=== PATIENT | female | born 1940 | race Caucasian/White ===

== ENCOUNTER 2016-09-18 10:12 | Inpatient (IN) | payer MEDICARE, BC ==
--- NOTE | ~2016-09-18 | DS ---
Discharge Summary [id number] [facility] [place]. [address] NAME: CASE,RUCHI PAGAN : 40 STATUS : DIS IN PAT#: [id number] AGE: 76 ADM/REG DATE : 09/19/16 MR#: [id number] REPORT SERV DATE: 09/20/16 DICTATED BY: JR. GOLDEN WILLIAM JOHN DATE: 09/20/16 REPORT STATUS : Draft TRANSCRIBED BY: MODLisa DATE: 09/20/16 ADMISSION DATE: 09/19/2016 DISCHARGE DATE: 09/20/2016 DISCHARGE DIAGNOSES: 1. Acute bronchitis. 2. Chronic obstructive pulmonary disease exacerbation. 3. Acute hypoxic respiratory failure. 4. Influenza B. 5. History of hypertension. 6. Hyperlipidemia. 7. Tobacco use. 8. Leukopenia, which has resolved. 9. Obstructive sleep apnea on home CPAP. OPERATIONS, PROCEDURES, AND TREATMENTS: Chest x-ray done 09/18/2016, which showed no acute cardiopulmonary abnormality. CT of the chest done 09/18/2016, which showed near symmetric bilateral bronchial wall thickening and peripheral subpleural tree in bud like nodularity involving both upper and lower lobes suggesting widespread mild inflammatory process, bronchitis, and small airway disease. There is 3 vessel coronary artery disease and/or stenting. There is mildly enlarged precarinal level 4R lymph node which was likely reactive. There are bilateral left greater than right pleural plaques with minimal calcification likely due to prior asbestos exposure. Blood cultures x2 done 09/18/2016 were sterile. DISCHARGE MEDICATIONS: Include: 1. Estradiol 0.075 mg topically every 72 hours. 2. Lisinopril 2.5 mg orally daily. 3. Zyrtec 10 mg orally daily. 4. Tamiflu 75 mg orally twice a day through 09/21/2016. 5. Pravachol 10 mg orally daily. 6. Metamucil 1 dose at bedtime. 7. Prednisone 40 mg orally daily for three days, then 20 for three days, then 10 for three days, then none. 8. Pulmicort Respules 0.5 mg inhaled twice a day. 9. Nasonex 2 sprays in both nostrils twice a day as needed. 10.DuoNeb 0.5/3 mg inhaled every four hours. 11.Vitamin. 12.Fish oil over the counter. 13.Ultram 50 mg twice a day as needed. 14.Levaquin 750 mg orally daily for three days. HOSPITAL COURSE: The patient was a very pleasant 76-year-old female, who presented to the Discharge Summary [address] [address] NAME: CASE,RUCHI PAGAN : 40 STATUS : DIS IN PAT#: [id number] AGE: 76 ADM/REG DATE : 09/19/16 MR#: [id number] REPORT SERV DATE: 09/20/16 DICTATED BY: JR. GOLDEN WILLIAM JOHN DATE: 09/20/16 REPORT STATUS : Draft TRANSCRIBED BY: TAL DATE: 09/20/16 emergency room on 09/18/2016 with cough, congestion, and shortness of breath. She says she got sick about 09/14/2016 with sore throat, cough, headache, chills, and sweats, but did not take her temperature. She had no nausea, vomiting, or diarrhea. She had some sputum production. She tried to treat the symptoms at home but then continued to feel poorly and presented to an urgent care at [place] where she was diagnosed with influenza B until she had a right-sided chest pneumonia infiltrate, was placed on Levaquin, she received a steroid injection and actually went home, she continued to have symptoms and came to the emergency room for further help. In the emergency department, the patient's was desaturating at 85% while walking on room air. She was afebrile and otherwise exam was unremarkable except diffuse expiratory wheezes with a few diminished airflow in all lung malone. The patient is admitted to the Clinical Decision Unit where she was started on IV steroids, inhaled bronchodilators, anticholinergics long-acting beta agonist, and steroids. The patient's wheezing resolved. She felt great, however, remained somewhat hypoxic. In speaking with the patient, she is a long-term smoker and does have a nebulizer machine and CPAP at home. This likely represents chronic hypoxia. She is currently saturating 88%-90% on room air. While sitting, we will do an ambulatory desaturation study and evaluate need for home oxygen. If the patient qualifies for home oxygen, we will discharge her home with oxygen. If she does not qualify, we will discharge her home without oxygen. She will complete Levaquin for a total five-day course and her course of Tamiflu. Steroids have been transitioned to oral steroids for a nine day taper. Regarding the influenza B, she will continue the Tamiflu which was started prior to presentation. The remainder of the patient's health problems remained stable and were not addressed. DISCHARGE DIET: Regular. DISCHARGE ACTIVITY: As tolerated. Will be discharged with oxygen if she qualifies. Follow up with Nicholas Patiño. For discharge exam and laboratory, please see the daily progress note. This discharge took 33 minutes for discharge encounter, coordination of care, and documentation. JUDITH/TAL Saúl Golden Jr, MD / [id number] CC: Saúl Golden Jr, MD Dayle C Hawthorne
--- NOTE | ~2016-09-18 | HP ---
History And Physical [id number] [place]. [address] NAME: CASE,RUCHI PAGAN : 40 STATUS : ADM Vamsi PAT#: [id number] AGE: 76 ADM/REG DATE : 09/18/16 MR#: [id number] REPORT SERV DATE: 09/18/16 DICTATED BY: RAVIN KRAUSE DATE: 09/18/16 REPORT STATUS : Draft TRANSCRIBED BY: MODL DATE: 09/18/16 DATE OF ADMISSION: 09/18/2016 CHIEF COMPLAINT: Cough, congestion, and shortness of breath. HISTORY OF PRESENT ILLNESS: The patient is a very pleasant, 76-year-old, white female. The patient reports she got sick around on last on the 14 of September. She states she has sore throat, cough, headache, chills, and sweats, but did not take her temperature. She had no nausea, vomiting, or diarrhea. She had some sputum production. She tried to treat these symptoms at home, but then by Saturday, she felt so poorly. She presented to an urgent care clinic in [place]. There, she was diagnosed with influenza B. She also was told she had a right-sided chest pneumonia infiltrate and was placed on Levaquin. She received a steroid injection and actually went home. She states she continued to have symptoms. She states her sore throat resolved and her headache resolved. Her chills and sweats resolved, but she continued to feel very short of breath with coughing. She states she could not get her breath and she does not wear oxygen at home. She does have a longstanding history of tobacco abuse and COPD, but does not wear oxygen and she states she got so short of breath today that she finally presented to [facility]. She was taking the Tamiflu and Levaquin as prescribed. PAST MEDICAL HISTORY: 1. Hypertension. 2. Hyperlipidemia. 3. Osteoarthritis. 4. Chronic back pain. 5. COPD. 6. Tobacco abuse. SOCIAL HISTORY: She smokes a little less than a pack a day, had for the last 50+ years. Does not use alcohol. She is . PAST SURGICAL HISTORY: She has had a tubal ligation, hysterectomy, cholecystectomy, cataract surgery, and skin cancer removal. ALLERGIES: PHENERGAN. FAMILY HISTORY: Negative for any coronary disease. There is a history of a brain tumor in a son, who . HOME MEDICATIONS: Pending in the MAR. This has not been done by the pharmacy as of yet. REVIEW OF SYSTEMS: A full ten-point review of systems obtained. Pertinent positives already mentioned in the HPI. PHYSICAL EXAMINATION: History And Physical [address] [address] NAME: CASE,RUCHI PAGAN : 40 STATUS : ADM Vamsi PAT#: [id number] AGE: 76 ADM/REG DATE : 09/18/16 MR#: [id number] REPORT SERV DATE: 09/18/16 DICTATED BY: RAVIN KRAUSE DATE: 09/18/16 REPORT STATUS : Draft TRANSCRIBED BY: TAL DATE: 09/18/16 VITAL SIGNS: She desats to 85% on room air with walking, she is 98% on 3 L. BP is 157/80, temperature 98.4, pulse is 90 to 100, respiratory rate is 20. GENERAL: Well-developed white female. HEENT: Normocephalic, atraumatic. Throat is clear. NECK: Supple. HEART: Regular rate and rhythm. LUNGS: She has diffuse expiratory wheezing and diminished air movement in all lung malone. ABDOMEN: Soft, nontender, nondistended. EXTREMITIES: Warm and dry. SKIN: Intact. No rash or lesion. NEURO: She is alert. She is oriented to person, place, and time. Speech is intact. PSYCH: Mood and affect are normal. LABORATORY AND X-RAY: EKG shows sinus rhythm. Procalcitonin 0.05. Sodium 138, potassium 3.8, chloride 100, CO2 30, BUN and creatinine 14 and 0.81, glucose 100, calcium 8.4, troponin 0.02, mag 1.8. BNP is 31. Lactate is 1.4. White count 3.8, H and H 14 and 44, and platelets are 174. Coags are normal. Chest x-ray does not show an obvious infiltrate. ASSESSMENT/PLAN: 1. Hypoxemic respiratory failure with dyspnea, cough, and symptoms consistent with a chronic obstructive pulmonary disease exacerbation, but also with recent history of Influenza diagnosed on 09/16. There was also mention of an infiltrate on the previous chest x-ray, which I do not see today. Currently, her white blood cell count is a little low. She has normal procalcitonin. I am going to admit her with a chronic obstructive pulmonary disease exacerbation and treat accordingly. We will place her on IV prednisone, nebulized therapy, and O2. We will continue her Levaquin for possible coexistent bronchitis. We will also continue her Tamiflu so that she completes a five- day course. I have counseled her extensively about tobacco cessation. 2. Abnormal chest x-ray at outside facility. Certainly given her longstanding tobacco abuse history, she has never had a CT scan and with a possible infiltrate on the other x-ray, I think it is reasonable to see her just to make sure we are not missing something. We will do a CT without contrast in the next 24 hours. 3. History of hypertension, still awaiting the home medication list. 4. Hyperlipidemia, again awaiting home medication list. 5. Deep venous thrombosis prophylaxis with subcutaneous Lovenox. 6. Tobacco abuse, needs cessation. 7. Disposition, pending above. RHONDA/TAL Ravin Krause M.D. / [id number] History And Physical [address] [address] NAME: RUCHI MILLS : 40 STATUS : ADM Vamsi PAT#: [id number] AGE: 76 ADM/REG DATE : 09/18/16 MR#: [id number] REPORT SERV DATE: 09/18/16 DICTATED BY: RAVIN KRAUSE DATE: 09/18/16 REPORT STATUS : Draft TRANSCRIBED BY: TAL DATE: 09/18/16 CC: Indigo Larose DAYLE C
[2016-09-18 09:30] LABS: BASOPHILS 0.3 %; BASOPHILS ABSOLUTE 0.01 10/3/uL (0.0-0.16); EOSINOPHILS 0 %; HEMATOCRIT 44.4 % (36.0-48.0); HEMOGLOBIN 14.3 g/dL (12.0-16.0); LYMPHOCYTES 30.1 %; LYMPHOCYTES ABSOLUTE 1.13 10/3/uL (0.67-4.30); MEAN CORPUSCULAR HEMOGLOB 28.8 pg (26.0-34.0); MEAN CORPUSCULAR VOLUME 89.3 fL (80-100); MEAN PLATELET VOLUME 9.2 fL (9.2-13.0); MONOCYTES 13.9 %; MONOCYTES ABSOLUTE 0.52 10/3/uL (0.21-1.20); NEUTROPHILS 55.7 %; NEUTROPHILS ABSOLUTE 2.09 10/3/uL (2.02-8.40); RBC DISTRIBUTION WIDTH 13.4 % (12.0-16.0); RED CELL COUNT 4.97 10/6/uL (4.0-5.6)
[2016-09-18 09:32] LABS: MANUAL DIFF NO %; MEAN CORPUS HGB CONC 32.2 g/dL (32.0-36.0); PLATELET COUNT 174 10/3/uL (150-400); WHITE BLOOD CELLS 3.8 10/3/uL (4.5-10.5)
[2016-09-18 09:38] LABS: PROTIME (NOT ORD) 12.8 SEC (12.0-14.5)
[2016-09-18 09:39] LABS: PARTIAL THROMBO TIME 30.2 SEC (22.5-37.2)
[2016-09-18 09:47] LABS: BUN (BLOOD UREA NITROGEN) 14 MG/DL (6-23); CALCIUM, SERUM 8.4 MG/DL (8.5-10.4); CHEST PAIN PROFILE TAT 0 Hrs 21 Mins; CHLORIDE, SERUM 100 MMOL/L (96-112); CO2 (CARBON DIOXIDE) 30 MMOL/L (24-34); CREATININE 0.81 MG/DL (0.55-1.02); GFR AFRICAN AMERICAN 82 ML/MIN (>=60); GFR NON AFRICAN AMERICAN 71 ML/MIN (>=60); GLUCOSE, SERUM 100 MG/DL (60-99); SODIUM, SERUM 138 MMOL/L (135-148); TROPONIN I <0.02 NG/ML (<0.05)
[2016-09-18 09:48] LABS: POTASSIUM, SERUM 3.8 MMOL/L (3.5-5.3)
[~2016-09-18 10:12] MED LIST: ACET500CAP PO; ADVIL PO; CENTRUM PO; FISH-EPA1000 MG PO; OS500+D PO; PRAV10 PO; VIVELLE-DOT0.075 MG TOP
[2016-09-18 10:32] LABS: PROCALCITONIN <0.05 ng/mL (<0.5)
[2016-09-18] MEDS ORDERED: OTC VITAMIN D3 PO (11:34)
[2016-09-18] MEDS ORDERED: PROAIR HFA INH (11:36)
[2016-09-18] MEDS ORDERED: OTC FISH OIL PO (11:36)
[2016-09-18] MEDS ORDERED: CELEBREX2 PO (11:37)
[2016-09-18] MEDS ORDERED: PRIN2.5 PO (11:37)
[2016-09-18] MEDS ORDERED: VIVELLE SY0.075 MG/2 TOP (11:37)
[2016-09-18] MEDS ORDERED: PRAV10 PO (11:37)
[2016-09-18] MEDS ORDERED: ULTRAM50 PO (11:37)
[2016-09-18] MEDS ORDERED: ZYRTEC ALLGY10 MG PO (11:38)
[2016-09-18] MEDS ORDERED: ALBUTEROL0.083 % INH (11:48)
[2016-09-18] MEDS ORDERED: METAMUCIL CAN7 OZ PO (11:48)
[2016-09-18] MEDS ORDERED: NASONEX NAS (11:49)
[2016-09-19 06:31] LABS: BASOPHILS 0.4 %; BASOPHILS ABSOLUTE 0.01 10/3/uL (0.0-0.16); EOSINOPHILS 0 %; HEMATOCRIT 46.6 % (36.0-48.0); HEMOGLOBIN 15.4 g/dL (12.0-16.0); LYMPHOCYTES 33.9 %; LYMPHOCYTES ABSOLUTE 0.81 10/3/uL (0.67-4.30); MEAN CORPUSCULAR HEMOGLOB 29.9 pg (26.0-34.0); MEAN CORPUSCULAR VOLUME 90.5 fL (80-100); MEAN PLATELET VOLUME 9.2 fL (9.2-13.0); MONOCYTES 8.4 %; NEUTROPHILS 57.3 %; NEUTROPHILS ABSOLUTE 1.37 10/3/uL (2.02-8.40); PLATELET COUNT 177 10/3/uL (150-400); RBC DISTRIBUTION WIDTH 12.9 % (12.0-16.0); RED CELL COUNT 5.15 10/6/uL (4.0-5.6)
[2016-09-19 06:33] LABS: MANUAL DIFF NO %; WHITE BLOOD CELLS 2.4 10/3/uL (4.5-10.5)
[2016-09-19 06:41] LABS: BUN (BLOOD UREA NITROGEN) 13 MG/DL (6-23); CALCIUM, SERUM 9.1 MG/DL (8.5-10.4); CHLORIDE, SERUM 99 MMOL/L (96-112); CO2 (CARBON DIOXIDE) 31 MMOL/L (24-34); CREATININE 0.93 MG/DL (0.55-1.02); GFR AFRICAN AMERICAN 69 ML/MIN (>=60); GFR NON AFRICAN AMERICAN 60 ML/MIN (>=60); POTASSIUM, SERUM 4.3 MMOL/L (3.5-5.3); SODIUM, SERUM 140 MMOL/L (135-148)
[2016-09-19 06:43] LABS: GLUCOSE, SERUM 128 MG/DL (60-99)
[2016-09-20 04:59] LABS: BASOPHILS 0.4 %; BASOPHILS ABSOLUTE 0.03 10/3/uL (0.0-0.16); EOSINOPHILS 0 %; HEMATOCRIT 42.9 % (36.0-48.0); HEMOGLOBIN 14.2 g/dL (12.0-16.0); IMMATURE GRANULOCYTES 0.1 %; IMMATURE GRANULOCYTES ABSOLUTE 0.01 10/3/uL (0.0-0.11); LYMPHOCYTES 24.5 %; LYMPHOCYTES ABSOLUTE 1.85 10/3/uL (0.67-4.30); MEAN CORPUS HGB CONC 33.1 g/dL (32.0-36.0); MEAN CORPUSCULAR HEMOGLOB 29.3 pg (26.0-34.0); MEAN CORPUSCULAR VOLUME 88.5 fL (80-100); MEAN PLATELET VOLUME 9.2 fL (9.2-13.0); MONOCYTES 12.3 %; MONOCYTES ABSOLUTE 0.93 10/3/uL (0.21-1.20); NEUTROPHILS 62.7 %; NEUTROPHILS ABSOLUTE 4.74 10/3/uL (2.02-8.40); PLATELET COUNT 181 10/3/uL (150-400); RBC DISTRIBUTION WIDTH 13.2 % (12.0-16.0); RED CELL COUNT 4.85 10/6/uL (4.0-5.6)
[2016-09-20 05:05] LABS: WHITE BLOOD CELLS 7.6 10/3/uL (4.5-10.5)
[2016-09-20 05:06] LABS: MANUAL DIFF NO %
[2016-09-20 05:32] LABS: CALCIUM, SERUM 8.9 MG/DL (8.5-10.4); CHLORIDE, SERUM 101 MMOL/L (96-112); CO2 (CARBON DIOXIDE) 33 MMOL/L (24-34); CREATININE 0.74 MG/DL (0.55-1.02); GFR AFRICAN AMERICAN 91 ML/MIN (>=60); GFR NON AFRICAN AMERICAN 79 ML/MIN (>=60); GLUCOSE, SERUM 103 MG/DL (60-99); POTASSIUM, SERUM 4.2 MMOL/L (3.5-5.3); SODIUM, SERUM 141 MMOL/L (135-148)
[2016-09-20 05:34] LABS: BUN (BLOOD UREA NITROGEN) 19 MG/DL (6-23)
[2016-09-20] MEDS ORDERED: TAMIFLU PO (12:10)
[2016-09-20] MEDS ORDERED: LEVAQUIN750 MG PO (12:11)
[2016-09-20] MEDS ORDERED: P10 PO (12:15)
[2016-09-20] MEDS ORDERED: DUONEB INH (12:27)
[2016-09-20] MEDS ORDERED: PULRESP.5 INH (12:31)
== END 2016-09-20 13:49 | disposition home or self-care (01) | DRG 189 ==
LOC: ER 10:12 → CDU1 10:51
PROVIDERS: Emergency Medicine; Internal Medicine
DX: J96.01 Acute respiratory failure with hypoxia (principal); J44.0 Chronic obstructive pulmonary disease with (acute) lower respiratory infection; J44.1 Chronic obstructive pulmonary disease with (acute) exacerbation; J20.9 Acute bronchitis, unspecified; J10.1 Influenza due to other identified influenza virus with other respiratory manifestations; G47.33 Obstructive sleep apnea (adult) (pediatric); E78.5 Hyperlipidemia, unspecified; F17.210 Nicotine dependence, cigarettes, uncomplicated; I10 Essential (primary) hypertension; I25.10 Atherosclerotic heart disease of native coronary artery without angina pectoris; Z77.090 Contact with and (suspected) exposure to asbestos; M54.9 Dorsalgia, unspecified; M19.90 Unspecified osteoarthritis, unspecified site; Z90.710 Acquired absence of both cervix and uterus; Z90.49 Acquired absence of other specified parts of digestive tract; Z85.828 Personal history of other malignant neoplasm of skin
CPT/HCPCS: 71010; 71250; 80048; 82962; 83605; 83735; 83880; 84145; 84484; 85025; 85610; 85730; 87040; 93005; 94640; 99285; A9270-GY; J1956; J2405; J2930